=== PATIENT | female | born 1990 | race Caucasian/White ===

== ENCOUNTER 2018-08-03 19:24 | Inpatient (IN) | payer SELFPAY ==
[2018-08-03] MEDS ORDERED: Ondansetron PF 4 MG/2 ML Vial IVP PRN (22:19)
[2018-08-03] MEDS ORDERED: Acetaminophen 1,000 MG in Premix Bag 1 BAG IVPB PRN (22:20)
[2018-08-03] MEDS ORDERED: Ketorolac Tromethamine 30 MG/ML VIAL IVP PRN (22:23)
[2018-08-03] MEDS ORDERED: Acetaminophen 1,000 MG in Premix Bag 1 BAG IVPB SCH (22:30)
[2018-08-03] MEDS ORDERED: Ketorolac Tromethamine 30 MG/ML VIAL IVP SCH (22:30)
[2018-08-03 22:58] VITALS: BMI 28.0
[2018-08-03] MEDS: Lactated Ringer's 1,000 ML IV SCH (23:23)
[2018-08-03] MEDS: Piperacillin/Tazobactam 3.375 GM in Sodium Chloride 0.9% 100 ML IVPB SCH (23:23)
[2018-08-04] MEDS: Piperacillin/Tazobactam 3.375 GM in Sodium Chloride 0.9% 100 ML IVPB SCH (06:08)
[2018-08-04] MEDS: Lactated Ringer's 1,000 ML IV SCH (06:18)
[2018-08-04] MEDS ORDERED: Fentanyl 100 MCG/2 ML VIAL ONE (08:50)
[2018-08-04] MEDS ORDERED: Ketorolac Tromethamine 30 MG/ML VIAL ONE (09:45)
[2018-08-04] MEDS ORDERED: Piperacillin/Tazobactam 3.375 GM VIAL ONE (09:45)
[2018-08-04] MEDS ORDERED: Sodium Chloride 0.9% 100 ML ONE (09:45)
[2018-08-04] MEDS ORDERED: Bupivacaine HCl 0.5%/Epinephrine 1:200,000/PF 30 ml Vial ONE (09:53)
--- NOTE | 2018-08-04 10:02 | HP ---
HISTORY OF PRESENT ILLNESS: Razia Anton is a 27-year-old female from [place], works at a school, is , has two children, has had intermittent right lower quadrant pain for the past two months, but more severe yesterday, presented to the emergency room. CAT scan revealed dilated appendix. She has a classic history and exam with onset of pain, epigastric yesterday localizing to her right lower quadrant. White count is normal. test is negative. CAT scan suggests urine abnormality. Ultrasound obtained and pending. ALLERGIES: NONE. SOCIAL HISTORY: Tobacco, none. Alcohol, none. MEDICATIONS: None. PAST SURGICAL HISTORY: She has had a . PAST MEDICAL HISTORY: Noncontributory. She is 2, para 2. REVIEW OF SYSTEMS: A 10-point, noncontributory. PHYSICAL EXAMINATION: VITAL SIGNS: Blood pressure 133/85, pulse 70, respiratory rate 18, and weight 68 kg. HEAD, EARS, EYES, NOSE, AND THROAT: Unremarkable. LUNGS: Clear to auscultation. CARDIAC: Regular rate and rhythm without murmur or gallop. ABDOMEN: Soft. Tenderness in right lower quadrant. Infraumbilical scar consistent with a . Guarding and rebound at right lower quadrant. EXTREMITIES: Unremarkable. DIAGNOSTIC STUDIES: CAT scan consistent with early appendicitis, although no inflammatory changes, upper limits, nor dilated appendix, and uterus. Ultrasound is pending. Hemoglobin is 13. Comprehensive metabolic profile is negative. Urine test is negative. ASSESSMENT AND PLAN: Acute appendicitis. We would recommend laparoscopic video appendectomy. Risks of infection, bleeding, and reoperation were discussed and she consents. Job ID: [id number]
[2018-08-04] MEDS ORDERED: Rocuronium Bromide 10 MG/ML (10ML VIAL) ONE (10:47)
[2018-08-04] MEDS ORDERED: Dexamethasone 20 MG/5 ML VIAL ONE (10:47)
[2018-08-04] MEDS ORDERED: PROPOFOL 200 MG/20 ML VIAL ONE (10:47)
[2018-08-04] MEDS ORDERED: Lidocaine 1% PF 5 ML VIAL ONE (10:47)
[2018-08-04] MEDS ORDERED: Ondansetron PF 4 MG/2 ML Vial ONE (10:47)
[2018-08-04] MEDS ORDERED: Glycopyrrolate 0.2 MG/ML 5 ML SYRINGE ONE (10:47)
--- NOTE | 2018-08-04 11:01 | ULT ---
PELVIC ULTRASOUND WITH PRICE SCALE AND DOPPLER COLOR FLOW IMAGING: Date: 08/04/18 Transvaginal and transabdominal pelvic ultrasound performed. CLINICAL INDICATION: Heterogeneous uterus on preceding CT, 08/03/18, with history of right lower abdominal pain and dysuri a. FINDINGS: The endometrium is normal in caliber at 3.0 mm. There is minimal fluid. Echogenicity of the endometri al canal, nonspecific, although this may be physiologic due to patient's age. There are foci of incre ased echogenicity which could either reflect a small volume of endometrial air or calcification. Dopp ler evaluation does reveal flow to each ovary. Physiologic appearing follicles are seen. No significa nt free pelvic fluid. IMPRESSION: 1. No significant abnormality visualized. 2. There is minimal fluid and interspersed areas of punctate increased echogenicity of the endometri um without abnormal endometrial thickening. Findings conveyed via telephone to patient's physician, Lewis Arora, at the time of interpretation . CODE CR. POS: ALEX
[2018-08-04] MEDS ORDERED: Ibuprofen 600 MG TAB PO PRN (11:09)
[2018-08-04] MEDS ORDERED: traMADol HCl 50 MG TAB PO PRN ×2 (11:09)
[2018-08-04] MEDS ORDERED: Acetaminophen 500 MG TAB PO PRN (11:09)
[2018-08-04] MEDS ORDERED: Ondansetron HCl/PF 4 MG/2 ML Vial IVP PRN ×2 (11:19→11:20)
[2018-08-04] MEDS ORDERED: Promethazine HCl 25 MG/ML VIAL SLOW IVP PRN ×2 (11:19→11:20)
[2018-08-04] MEDS ORDERED: Promethazine HCl 25 MG/ML VIAL IM PRN ×2 (11:19→11:20)
[2018-08-04] MEDS ORDERED: Morphine Sulfate 2 MG/ML SYRINGE SLOW IVP PRN (11:20)
--- NOTE | 2018-08-04 11:37 | DIS ---
DATE OF ADMISSION: 08/03/2018 DATE OF DISCHARGE: 08/04/2018 DISCHARGE DIAGNOSES: Acute appendicitis, uterine abnormality on CAT scan, normal ultrasound, uterine CAT scan positive due to venous phase of contrast. PROCEDURES THIS HOSPITALIZATION: CT scan of abdomen and pelvis in the emergency room, ultrasound of the pelvis, laparoscopic video appendectomy. DISCHARGE MEDICATIONS: Tylenol, Motrin, [id number] tramadol as needed for pain. Follow up in my office in 2 to 3 weeks. HISTORY: A 27-year-old female with acute onset of pain with prior history of intermittent pain and menstrual irregularity over 2 weeks, although not heavy menstrual flow. CAT scan of the abdomen and pelvis revealed early appendicitis in [place]. Ultrasound of the pelvis prior to this laparoscopic appendectomy revealed normal uterus. Laparoscopic appendectomy undertaken postoperatively. Discharge home with diet and activity as tolerated. No restrictions lifting. Follow up in the office in 2 to 3 weeks. Job ID: [id number]
--- NOTE | 2018-08-04 11:52 | OP ---
DATE OF PROCEDURE: 08/04/2018 PREOPERATIVE DIAGNOSIS: Acute appendicitis. POSTOPERATIVE DIAGNOSIS: Acute appendicitis. PROCEDURE PERFORMED: Laparoscopic video appendectomy. ANESTHESIA: General, local of 0.5% Marcaine with epinephrine 30 mL, total volume used. Note, the patient's preoperative CT scan suggested uterine abnormality, but pelvic ultrasound was normal. Interpretation was that the CAT scan was different venous phase and inaccurate and there was no uterine abnormality. DESCRIPTION OF PROCEDURE: The patient was taken to the operating room, where under general anesthesia, abdomen was clipped of hair, prepared with ChloraPrep, and draped in routine fashion. Local anesthetic was infiltrated in the skin and subcutaneous tissue about each port site. Cardenas catheter was placed at the beginning of the procedure and removed at the end. Infraumbilical incision was made. Pneumoperitoneum to 15 mmHg was obtained with a Veress needle, replaced with a 5 port, laparoscope was inserted. A right subcostal incision was made and a 5 port placed. Suprapubic incision was made and a 12 port placed. Appendix was acutely inflamed. Mesoappendix was taken down with the LigaSure. The stump of the appendix divided with Endo blue load LISSET stapler. Stapled cecal stump was hemostatic and secured. Appendix was removed and submitted to Pathology. Suprapubic fascia was approximated with 0 Vicryl. Irrigant and pneumoperitoneum evacuated. All instruments were removed. All skin incisions were approximated with interrupted subdermal 4-0 Monocryl and Pelzer glue applied. Job ID: [id number]
[2018-08-04 14:49] VITALS: BP 98/60; TEMP 97.9
== END 2018-08-04 14:54 | disposition home or self-care (01) | DRG 343 ==
LOC: SURG A 19:46 → OBSVTOIN 19:46
PROVIDERS: ADMIT Specialist; ATTEND Specialist
PROC: 0DTJ4ZZ Resection of Appendix, Percutaneous Endoscopic Approach (ICD-10-PCS; principal; 2018-08-04)
DX: K35.80 Unspecified acute appendicitis (principal); Z98.890 Other specified postprocedural states
CPT/HCPCS: 76856; 88304; J0131; J0670; J1885; J2543; J3010; J7050

== ENCOUNTER 2019-10-04 13:22 | Outpatient (CLI) | payer OTHER ==
--- NOTE | 2019-10-04 14:05 | ULT ---
ULTRASOUND OBSTETRICAL COMPLETE: DATE: 10/04/2019 HISTORY: 29-year-old female ICD-10: "Z 34.82, encounter for supervision of other normal , second trim leia. Complete anatomy, size and dates, cervical length" FINDINGS: number: hall lie: Breech Maternal cervix: 6.5 cm. Closed. Placenta: Anterior. No previa. Amniotic fluid volume: TRISTON = 11 cm heart rate: 144 bpm The following anatomy is visualized, with no evidence of anomalies: Head, cerebellum, lateral ventricles, four-chamber heart, stomach, kidneys, cord insertion, bladder, cervical spine, thoracic spine, lumbar spine, sacrum, nose and lips, upper extremities, lower extremities, and three-vessel cord. biometry: Biparietal diameter (BPD): 4.8 cm 20 w 4 d Head circumference (HC): 17.4 cm 20 w 0 d Abdominal circumference (AC): 14.2 cm 19 w 4 d Femur length (FL): 3.0 cm 19 w 1 d Average ultrasound age (AUA): 19 w 6 d Estimated date of delivery (ROB): 02/22/2020 Estimated weight (EFW): 293 g +/- 43 g IMPRESSION: 1) Live 2nd trimester intrauterine gestation. 2) Estimated gestational age of 19 weeks, 6 days 3) breech lie. 4) no anatomic abnormality identified.
== END 2019-10-04 13:23 | disposition home or self-care (01) ==
LOC: BICULT 13:22
PROVIDERS: ATTEND Family Medicine
DX: Z34.82 Encounter for supervision of other normal pregnancy, second trimester (principal); O32.1XX0 Maternal care for breech presentation, not applicable or unspecified; Z3A.19 19 weeks gestation of pregnancy
CPT/HCPCS: 76805